=== PATIENT | female | born 1980 | race Caucasian/White ===

== ENCOUNTER → 2023-10-16 12:51 | Outpatient (REF) | payer OTHER, SELFPAY | LOC: RAD 12:51 | PROVIDERS: ATTENDING PHYSICIAN Internal Medicine | DX: R10.33 Periumbilical pain (principal); K50.80 Crohn's disease of both small and large intestine without complications | CPT/HCPCS: 74178; Q9967 ==

== ENCOUNTER → 2024-05-09 15:50 | Outpatient (REF) | payer OTHER, SELFPAY | LOC: WDC 15:50 | PROVIDERS: ATTENDING PHYSICIAN Nurse Practitioner Adult Health | DX: Z12.31 Encounter for screening mammogram for malignant neoplasm of breast (principal) | CPT/HCPCS: 77063; 77067 ==

== ENCOUNTER → 2025-05-19 16:15 | Outpatient (REF) | payer OTHER, SELFPAY | LOC: WDC 16:15 | PROVIDERS: ATTENDING PHYSICIAN Obstetrics & Gynecology Gynecology | DX: Z12.31 Encounter for screening mammogram for malignant neoplasm of breast (principal) | CPT/HCPCS: 77063; 77067 ==